=== PATIENT | male | born 1960 | race Caucasian/White ===

== ENCOUNTER 2018-10-04 12:44 | Emergency (ER) | payer BC ==
[~2018-10-04] VITALS: Ht 188 cm; Wt 97.5 kg
--- NOTE | 2018-10-04 12:48 | NUR ---
PT A/OX4, BIB [facility], C/O LETHARGY AND GENERALIZED WEAKNESS. PER CONTAINER REPAIRER'S REPORT, PT WAS RECENTLY DIAGNOSED W/ BRAIN CA AND WAS RETURNING HOME FROM HAVING A MASK FITTED FOR CHEMOTHERAPY WHEN HE FELT WEAK AND LETHARGIC. PT REPORTS HE WAS UNABLE TO SLEEP LAST NIGHT. VSS. PT PT'S , PT IS CURRENTLY ON A FLUID RESTRICTION: 2,000 ML/DAY. PT DENIES PAIN, C/P, SOB, N/V/D, DIZZINESS, HEADACHE.
[2018-10-04] MEDS ORDERED: LEVE500T20 PO (12:54)
[2018-10-04] MEDS ORDERED: DEXA2TAB PO (12:54)
--- NOTE | 2018-10-04 13:43 | NUR ---
NEGRITA HURTADO AT BEDSIDE FOR MSE.
[2018-10-04] MEDS ORDERED: IV NS 1000 ML 1,000 ML IV ONE (13:55)
[2018-10-04] MEDS ORDERED: HYDROCORTISONE SOD SUCCINATE 100 MG/2 ML VIAL IV ONE ×4 (14:00→14:03)
[2018-10-04 14:15] LABS: BASOPHILS % (AUTO) 0.4 % (0.0-2.0); EOSINOPHILS % (AUTO) 0.3 % (0.0-7.0); HEMATOCRIT 45.1 % (36.7-47.1); HEMOGLOBIN 14.9 g/dL (12.5-16.3); LYMPHOCYTES # (AUTO) 0.5 K/uL (20.0-40.0); MEAN CORPUSCULAR HEMOGLOBIN 30.6 uug (23.8-33.4); MEAN CORPUSCULAR HGB CONC 33 g/dL (32.5-36.3); MEAN CORPUSCULAR VOLUME 92.4 fL (73.0-96.2); MONOCYTES # (AUTO) 0.5 K/uL (2.0-10.0); MONOCYTES % (AUTO) 5.6 % (0.0-11.0); NEUTROPHILS # (AUTO) 7.6 K/uL (1.8-8.9); NEUTROPHILS % (AUTO) 87.7 % (38.5-71.5); PLATELET COUNT (AUTO) 191 K/uL (152-348); RED BLOOD CELL COUNT(AUTO) 4.87 MIL/uL (4.06-5.63); WHITE BLOOD COUNT (AUTO) 8.6 K/uL (3.6-10.2)
[2018-10-04 14:24] LABS: CREATININE 0.9 mg/dL (0.6-1.3)
[2018-10-04 14:30] LABS: BILIRUBIN,DIRECT 0.2 mg/dL (0.0-0.2); BILIRUBIN,TOTAL 0.7 mg/dL (0.2-1.0); TOTAL PROTEIN, SERUM 6.6 g/dL (6.4-8.2)
[2018-10-04] MEDS ORDERED: DEXAMETHASONE SOD PHOSPHATE 4 MG INJ IV ONE (15:00)
[2018-10-04] MEDS ORDERED: DEXAMETHASONE SOD PHOSPHATE 10 MG INJ ONE (15:12)
--- NOTE | 2018-10-04 15:24 | NUR ---
18G IV ACCESS IN LAC INFILTRATED - IV ACCESS REMOVED. INNER CANNULA INTACT. WARM COMPRESS APPLIED TO SITE.
--- NOTE | 2018-10-04 15:50 | NUR ---
Patient, and his family, reported feeling improved and requested to leave and follow up with their doctor which was already established for next week. Patient provided with meal, ate 50% of sandwich, and tolerated well. ERMD notified.
--- NOTE | 2018-10-04 16:05 | NUR ---
Patient discharged to home in stable conditon. Written and verbal after care instructions given. Patient verbalizes understanding of instructions.
[2018-10-04 16:07] VITALS: BP 132/79
== END 2018-10-04 16:09 | disposition home or self-care (01) ==
LOC: ER 12:44
DX: E27.40 Unspecified adrenocortical insufficiency (principal); Z79.899 Other long term (current) drug therapy
CPT/HCPCS: 36415; 80048; 80076; 83605; 84484; 85025; 87040 ×2; 93005; 96374; 96375; 99284; J1100; J1720 ×2; 70030-TC; A4663; J7030